=== PATIENT | male | born 1985 | race Caucasian/White ===

== ENCOUNTER 2016-11-21 05:49 | Inpatient (IN) | payer MEDICAID ==
[~2016-11-21] VITALS: Ht 152.4 cm; Wt 22.7 kg
[~2016-11-21 05:49] MED LIST: ALBUTEROL2.5 MG/3 M UPD; AUGMENTIN 875-11 TAB PO; DEPAKENE 2250 MG/5 M PEG; DEPAKENE 2250 MG/5 M PO; DOXYCYCLINE HY100 M2 PEG; OMNICEF250 MG/5 M PO; PHENOBARBI20 MG/5 ML PO; TEGRETOL200 MG PEG; TEGRETOL200 MG PO
[2016-11-21 07:10] LABS: BASOPHILS 2.7 % (0.0-2.0); EOSINOPHILS 0.6 % (0-7); HEMATOCRIT 41.9 % (42.0-54.0); HEMOGLOBIN 14.7 g/dL (13.5-17.5); MCH 31.1 pg (26.0-34.0); MCHC 35.1 g/dL (31.0-37.0); MCV 88.8 fL (80.0-100.0); MEAN PLATELET VOLUME 13.3 fL (7.4-10.4); MONOCYTES 14.9 % (2-11); NEUTROPHILS 62.8 % (40-80); RBC 4.72 10x6/uL (4.20-6.10); RDW 13.8 % (11.5-14.5)
[2016-11-21 07:11] LABS: PLATELET COUNT 170 10x3/uL (130-400)
[2016-11-21 08:35] LABS: ALBUMIN 3.7 g/dL (3.4-5.0); ALKALINE PHOSPHATASE 92 U/L (46-116); ALT (SGPT) 25 U/L (10-68); BILIRUBIN - TOTAL 0.32 mg/dL (0.2-1.3); CALC OSMOLALITY 255 mosm/kg (275-300); CALCIUM 8.8 mg/dL (8.5-10.1); CARBON DIOXIDE 24.5 mmol/L (21.0-32.0); CHLORIDE - SERUM 92 mmol/L (98-107); CREATININE - SERUM 0.3 mg/dL (0.6-1.3); GLUCOSE 109 mg/dL (74-106); PROTEIN - SERUM 7.2 g/dL (6.4-8.2); SODIUM 128 mmol/L (136-145); UREA NITROGEN 7 mg/dL (7-18); eGFR NON AFRICAN AMERICAN > 90 mL/min (90-120)
--- NOTE | 2016-11-21 10:00 | NUR ---
RECEIVED PATIENT VIA STRETCHER FROM THE ER. MOTHER WITH PATIENT. PATIENT IS NONVERBAL AND DISABLED. PATIENT'S MOTHER IS HIS PRIMARY QUILL CLEANER. PATIENT'S MOTHER STATES THAT PATIENT IS "VOCAL" AT TIMES, BUT IS NONVERBAL FOR HIS NEEDS AND COMMUNICATION. ORIENTED MOTHER TO CALL LIGHT AND PATIENT'S ROOM. PATIENT IS 50 LBS PER STATEMENT FROM HIS MOTHER. PATIENT'S BILATERAL UPPER AND LOWER EXTREMITIES ARE CONTRACTED. WILL MONITOR.
--- NOTE | 2016-11-21 15:44 | NUR ---
PATIENT RESTING QUIETLY WITH EYES CLOSED. NO S/S OF DISTRESS NOTED. SCHEDULED MEDICATIONS GIVEN NOW THAT WERE ORDERED TO BE GIVEN AT 1200. PATIENT'S MOTHER STATED THAT SHE DOES NOT GIVE HIM ANY MEDS AT NOON AND REQUESTED THEM BE GIVEN NOW. SAEED BUTTON IN PLACE AND FLUSHED WITHOUT ANY PROBLEMS NOTED. MEDICATIONS GIVEN WITHOUT ANY DIFFICULTIES. CALL LIGHT IN REACH. WILL MONITOR PATIENT
[2016-11-21 15:50] VITALS: BP 118/68
[2016-11-21 17:13] VITALS: BP 115/72
--- NOTE | 2016-11-21 19:15 | NUR ---
RECIEVED SHIFT REPORT. PT IS LYING IN BED. PT HAS EYES OPENED BUT IS NON VERBAL. IV IS PATENT AND FLUIDS ARE RUNNING PER ORDER. PT REQUIRES ASSISTANCE TURNING IN BED FOR COMFORT AND SKIN CARE. PT SHOWS NO SIGN OF PAIN AT THIS TIME. MOM IS AT THE BEDSIDE. NO NEEDS AT THIS TIME. WILL CONTINUE TO MONITOR. SIDE RAILS ARE UP X 2. BED IS IN LOWEST POSITION. CALL LIGHT IS WITHIN REACH.
[2016-11-21 20:32] VITALS: BP 72/39
--- NOTE | 2016-11-21 21:46 | NUR ---
SHIFT ASSESSMENT COMPLETED. NIGHT MEDS GIVEN PER ORDER THROUGH SAEED BUTTON WITH NO PROBLEM. SCHEDULED DOSE OF PHENOBARBITAL NOT GIVEN DUE TO DOSING ISSUES. WILL ADDRESS WITH PHARMACY IN AM. MOM STATES HE CANNOT GO WITHOUT IT DUE TO HIS HISTORY OF SEIZURES. SHE GAVE HIM DOSE FROM HOME MEDS. NO NEEDS AT THIS TIME. WILL MONITOR. SIDE RAILS X 2. BED LOW. CALL LIGHT IN REACH.
[2016-11-22 04:00] VITALS: BP 94/55
[2016-11-22 05:50] LABS: BASOPHILS 0 % (0.0-2.0); EOSINOPHILS 0 % (0-7); IMMATURE GRANULOCYTES 0.2 % (0-5); LYMPHOCYTES 6.9 % (15-50); MCH 30.6 pg (26.0-34.0); MCHC 34.7 g/dL (31.0-37.0); MCV 88.3 fL (80.0-100.0); MEAN PLATELET VOLUME 12.4 fL (7.4-10.4); MONOCYTES 8.6 % (2-11); NEUTROPHILS 84.3 % (40-80); PLATELET COUNT 157 10x3/uL (130-400); RDW 13.8 % (11.5-14.5)
[2016-11-22 05:59] LABS: HEMATOCRIT 32.3 % (42.0-54.0); HEMOGLOBIN 11.2 g/dL (13.5-17.5); RBC 3.66 10x6/uL (4.20-6.10)
[2016-11-22 06:16] LABS: CALC OSMOLALITY 253 mosm/kg (275-300); CALCIUM 8.2 mg/dL (8.5-10.1); CARBON DIOXIDE 23.4 mmol/L (21.0-32.0); CHLORIDE - SERUM 92 mmol/L (98-107); CREATININE - SERUM 0.3 mg/dL (0.6-1.3); GLUCOSE 112 mg/dL (74-106); POTASSIUM - SERUM 3.7 mmol/L (3.5-5.1); SODIUM 127 mmol/L (136-145); UREA NITROGEN 8 mg/dL (7-18); eGFR NON AFRICAN AMERICAN > 90 mL/min (90-120)
[2016-11-22 07:47] VITALS: BP 87/45
--- NOTE | 2016-11-22 09:00 | NUR ---
RESPONDS WITH EYE OPENING TO VERBAL STIMULATION. UNABLE TO ASSESS ORIENTATION PATIENT IS NON VERBAL. MOTHER IS AT BEDSIDE. LUNGS HAVE ADVANTAGOUS LUNG SOUNDS THROUGHOUT, OCCASSIONAL PRODUCTIVE COUGH NOTED. SKIN IS INTACT WITHOUT REDNESS EXCEPT SCAB TO LEFT ELBOW. GIVEN AM MEDS VIA ROMA BUTTON WITHOUT DIFFICULTY. HOB UP 30 DEGREES. IV TO LEFT HAND IS PATENT WITHOUT REDNESS AT INSERTION SITE. NO NEEDS NOTED.
--- NOTE | 2016-11-22 10:30 | NUR ---
GIVEN AM MEDS VIA SAEED BUTTON WITHOUT DIFFICULTY.
[2016-11-22 13:32] VITALS: BP 82/52
[2016-11-22 14:31] VITALS: Ht 152.4 cm; Wt 22.7 kg
[2016-11-22 16:09] VITALS: BP 96/51
--- NOTE | 2016-11-22 19:46 | NUR ---
NO CHANGES AT THIS TIME. MOTHER AT BEDSIDE.
[2016-11-22 20:00] VITALS: BP 94/64
--- NOTE | 2016-11-22 20:26 | NUR ---
PATIENT'S MOM IS AT BEDSIDE AND DENIES NEEDS AT THIS TIME. BED IN LOWEST POSITION AND CALL LIGHT WITHIN REACH. ENCOURAGED PATIENT'S MOTHER TO CALL IF SHE OR THE PATIENT HAVE NEEDS.
[2016-11-23 04:00] VITALS: BP 117/75
--- NOTE | 2016-11-23 08:00 | NUR ---
AROUSES TO VERBAL STIMULATION. INCONTINENT OF STOOL AND URINE AT THIS TIME. SKIN CARE PER STAFF. REPOSITIONED FOR COMFORT. LUNGS HAVE CRACKLES AND WHEEZES THROUGHOUT LUNG COLEMAN. PRODUCTIVE COUGH NOTED. FAMILY AT BEDSIDE USES YONKERS OCCASSIONALLY TO CLEAR MOUTH. SKIN IS INTACT WITHOUT REDNESS EXCEPT SCAB TO LEFT ELBOW, AND OPEN WOUND TO LEFT EAR WHICH IS CLEAN AND DRY AT THIS TIME. IV TO LEFT HAND IS PATENT WITHOUT REDNESS AT INSERTION SITE. SAEED BUTTON IS PATENT WITH SOME REDNESS AROUND INSERTION SITE. NO NEEDS NOTED.
[2016-11-23 08:33] VITALS: BP 120/69
--- NOTE | 2016-11-23 08:57 | NUR ---
Patient Name: AMILCAR GALLAGHER Admission Status: ER Accout number: [id number] Admission Date: 11-21-2016 : 1985 Admission Diagnosis:PNEUMONIA, UNSPECIFIED ORGANISM Attending: CHRISTIE Current LOS: 2 Anticipated DC Date: 11-26-2016 Planned Disposition: Home with Home Health Primary Insurance: MEDICAID [place] Discharge Planning Comments: CM MET WITH PATIENTS MOTHER (KEYANA) REGARDING D/C NEEDS AND PLANS. MOTHER STATED THERE IS ONE STEP AT HER HOME TO ENTER AND NO STAIRS INSIDE. PATIENT IS TOTALLY DEPENDENT FOR HIS CARE. MOTHER STATES PATIENT HAS [facility]. PATIENTS CAREGIVER (REGINE) IS THERE 5 DAYS A WEEK FOR 8 HRS. ALONG WITH HIS MOTHER BEING THERE BATTER DEPOSITOR. PATIENT HAS A NEBULIZER, BED, AND WHEELCHAIR AT HOME. PATIENTS PCP IS DR. SHAH AND PHARMACY IS [facility] ON [facility]. PATIENT WILL RETURN HOME AT DISCHARGE. CM WILL CONTINUE TO FOLLOW PATIENT WITH D/C NEEDS AND PLANS. PCP DR. PABLO SPIVEY ON [facility]- [phone] KEYANA ([facility] [place]) [phone] Garbage Pick Up Worker: Suzanne Floyd How many steps to enter\exit or inside your home? 1 0 * PCP DR. SHAH 0 * Pharmacy [facility] ON [address] 0 * Preadmission Environment Home with Family 0 * ADLs Total Dependent 0 * Equipment Nebulizer Wheelchair 0 * List name and contact numbers for known caregivers / representatives who currently or will assist patient after discharge: KEYANA GomezMOM) [phone] * Community resources currently utilized Home Health Other 0 * Please name any agencies selected above. [facility] 0 * Additional services required to return to the preadmission environment? Yes 0 * Can the patient safely return to the preadmission environment? Yes 0 * Has this patient been hospitalized within the prior 30 days at any hospital? No 0 Grand Total: 0
--- NOTE | 2016-11-23 09:30 | NUR ---
GIVEN CAN OF TWO ATUL VIA SAEED BUTTON. TOLERATED WITHOUT EMESIS. HOB UP 35 DEGREES
[2016-11-23 09:40] LABS: BASOPHILS 0 % (0.0-2.0); EOSINOPHILS 0 % (0-7); HEMATOCRIT 35.2 % (42.0-54.0); IMMATURE GRANULOCYTES 0.2 % (0-5); LYMPHOCYTES 6.7 % (15-50); MCH 30.6 pg (26.0-34.0); MCHC 34.1 g/dL (31.0-37.0); MCV 89.8 fL (80.0-100.0); MONOCYTES 8.6 % (2-11); NEUTROPHILS 84.5 % (40-80); PLATELET COUNT 140 10x3/uL (130-400); RBC 3.92 10x6/uL (4.20-6.10); RDW 14.1 % (11.5-14.5); WBC 11.1 10x3/uL (4.8-10.8)
[2016-11-23 09:57] LABS: ALBUMIN 3.2 g/dL (3.4-5.0); ALKALINE PHOSPHATASE 86 U/L (46-116); ALT (SGPT) 25 U/L (10-68); BILIRUBIN - TOTAL 0.45 mg/dL (0.2-1.3); CALCIUM 8.5 mg/dL (8.5-10.1); CARBON DIOXIDE 23.8 mmol/L (21.0-32.0); CHLORIDE - SERUM 97 mmol/L (98-107); GLUCOSE 113 mg/dL (74-106); MAGNESIUM - SERUM 1.9 mg/dL (1.8-2.4); PHOSPHOROUS 3.1 mg/dL (2.5-4.9); POTASSIUM - SERUM 3.3 mmol/L (3.5-5.1); PROTEIN - SERUM 6.6 g/dL (6.4-8.2); SODIUM 132 mmol/L (136-145)
[2016-11-23 09:58] LABS: CALC OSMOLALITY 262 mosm/kg (275-300); CREATININE - SERUM 0.2 mg/dL (0.6-1.3); UREA NITROGEN 5 mg/dL (7-18); eGFR NON AFRICAN AMERICAN > 90 mL/min (90-120)
--- NOTE | 2016-11-23 11:45 | NUR ---
INCONTINENT OF SMALL AMOUNT OF DARK STOOL AND URINE. SKIN CARE PER STAFF. LINENS CHANGED.
[2016-11-23 12:50] VITALS: BP 143/53
--- NOTE | 2016-11-23 16:15 | NUR ---
GIVEN ONE CAN TWO ATUL VIA SAEED BUTTON. TOLEARATED WITHOUT EMESIS.
[2016-11-23 17:33] VITALS: BP 103/60
--- NOTE | 2016-11-23 18:32 | NUR ---
LINENS CHANGED. REPOSITIONED FOR COMFORT. MOTHER AT BEDSIDE. NO CHANGES NOTED. DENIES NEEDS.
--- NOTE | 2016-11-23 19:37 | NUR ---
PATIENT'S MOM AT BEDSIDE AND DENIES NEEDS AT THIS TIME. PATIENT IN BED AND SHOWS NO VISIBLE SIGNS OF DISTRESS. BED IN LOWEST POSITION AND CALL LIGHT WITHIN REACH. ENCOURAGED PATIENT AND PATIENT'S MOM TO CALL IF HE HAS NEEDS.
[2016-11-23 22:58] VITALS: BP 105/57
[2016-11-24 02:04] VITALS: BP 101/65
[2016-11-24 05:36] LABS: BASOPHILS 0 % (0.0-2.0); EOSINOPHILS 0 % (0-7); HEMATOCRIT 36.3 % (42.0-54.0); HEMOGLOBIN 12.3 g/dL (13.5-17.5); IMMATURE GRANULOCYTES 0.1 % (0-5); LYMPHOCYTES 16.4 % (15-50); MCH 30.5 pg (26.0-34.0); MCHC 33.9 g/dL (31.0-37.0); MCV 90.1 fL (80.0-100.0); MEAN PLATELET VOLUME 11.7 fL (7.4-10.4); MONOCYTES 9.4 % (2-11); NEUTROPHILS 74.1 % (40-80); PLATELET COUNT 137 10x3/uL (130-400); RBC 4.03 10x6/uL (4.20-6.10); RDW 14.1 % (11.5-14.5)
[2016-11-24 06:15] VITALS: BP 125/68
[2016-11-24 06:31] LABS: ALBUMIN 2.9 g/dL (3.4-5.0); ALKALINE PHOSPHATASE 95 U/L (46-116); ALT (SGPT) 26 U/L (10-68); CALCIUM 8.7 mg/dL (8.5-10.1); CARBON DIOXIDE 26.7 mmol/L (21.0-32.0); CHLORIDE - SERUM 100 mmol/L (98-107); CREATININE - SERUM 0.2 mg/dL (0.6-1.3); GLUCOSE 87 mg/dL (74-106); MAGNESIUM - SERUM 2.2 mg/dL (1.8-2.4); PHOSPHOROUS 2.4 mg/dL (2.5-4.9); POTASSIUM - SERUM 3.6 mmol/L (3.5-5.1); PROTEIN - SERUM 6.3 g/dL (6.4-8.2); SODIUM 137 mmol/L (136-145); eGFR NON AFRICAN AMERICAN > 90 mL/min (90-120)
[2016-11-24 06:32] LABS: CALC OSMOLALITY 270 mosm/kg (275-300); UREA NITROGEN 8 mg/dL (7-18)
--- NOTE | 2016-11-24 07:36 | NUR ---
RESTING QUIETLY WITH EYES CLOSED. MOTHER AT BEDSIDE. LUNGS HAVE CRACKLES THROUGHOUT LUNG COLEMAN. OCCASSIONAL PRODUCTIVE COUGH NOTED. SKIN IS INTACT WITHOUT REDNESS EXCEPT SCAB TO LEFT ELBOW AND WOUND TO RIGHT EAR WHICH IS OLD. IV TO LEFT HAND PATENT WITHOUT REDNESS AT INSERTION SITE. NO NEEDS NOTED.
[2016-11-24 08:46] VITALS: BP 122/95
--- NOTE | 2016-11-24 10:56 | NUR ---
GIVEN AM MEDS PER NURSING STUDENTS USING SAEED BUTTON. TOLERATED FEEDING WITHOUT SIGNS OF NAUSEA.
[2016-11-24 11:00] LABS: APPEARANCE CLEAR (CLEAR); BACTERIA FEW /hpf (NONE SEEN); BILIRUBIN NEGATIVE (NEGATIVE); COLOR DK YELLOW (YELLOW); EPITHELIAL CELLS 0-5 /hpf (0-5); GLUCOSE NEGATIVE (NEGATIVE); KETONE NEGATIVE (NEGATIVE); LEUKOCYTE ESTERASE TRACE (NEGATIVE); MUCUS <1+ /lpf (NONE SEEN); NITRITE NEGATIVE (NEGATIVE); PROTEIN NEGATIVE (NEGATIVE); RED CELLS - URINE OCC /hpf (0-5); SPECIFIC GRAVITY 1.005 (1.005-1.020); UROBILINOGEN NORMAL (NORMAL); WHITE CELLS - URINE OCC /hpf (0-5)
[2016-11-24 12:45] VITALS: BP 104/65
--- NOTE | 2016-11-24 13:14 | NUR ---
NUTRITION MONITORING & EVAL SPOKE WITH NURSING. PT TOLERATING TWO ATUL HN. [address] FOLLOWING
--- NOTE | 2016-11-24 15:00 | NUR ---
GIVEN ONE CAN TWO ATUL VIA SAEED PEG. TOLERATED WITHOUT COMPLICATIONS.
--- NOTE | 2016-11-24 16:20 | NUR ---
HAD SOME CHOKING AND SUCTIONED PER STAFF, RESOLVED QUICKLY WITHOUT ILL EFFECTS NOTED.
[2016-11-24 16:43] VITALS: BP 114/74
--- NOTE | 2016-11-24 18:28 | NUR ---
NO CHANGES NOTED AT THIS TIME. MOTHER AT [facility].
[2016-11-24 20:00] VITALS: BP 118/62
--- NOTE | 2016-11-24 22:05 | NUR ---
PATIENT RESTING IN BED WITH MOTHER AT BEDSIDE. ADMINISTERED MEDICATION AND FEEDING. NO VISIBLE SIGNS OF DISTRESS. BED IN LOWEST POSITION AND CALL LIGHT WITHIN REACH. ENCOURAGED MOM TO CALL IF THE PATIENT HAS FURTHER NEEDS.
--- NOTE | 2016-11-24 23:30 | NUR ---
NOY BALDWIN AFTER WILVER INFORMED ME THAT THE PATIENT HAS 100.8 TEMP. DENNY ORDERED TYLENOL FOR THE PATIENT'S FEVER.
[2016-11-25] VITALS: BP 94/62
[2016-11-25 04:00] VITALS: BP 102/77
[2016-11-25 05:41] LABS: BASOPHILS 0.2 % (0.0-2.0); EOSINOPHILS 0 % (0-7); HEMATOCRIT 30.1 % (42.0-54.0); IMMATURE GRANULOCYTES 0.2 % (0-5); LYMPHOCYTES 25.3 % (15-50); MCH 30.2 pg (26.0-34.0); MCHC 33.2 g/dL (31.0-37.0); MCV 90.9 fL (80.0-100.0); MEAN PLATELET VOLUME 11.8 fL (7.4-10.4); MONOCYTES 13.1 % (2-11); NEUTROPHILS 61.2 % (40-80); PLATELET COUNT 142 10x3/uL (130-400); RBC 3.31 10x6/uL (4.20-6.10); RDW 14.4 % (11.5-14.5)
[2016-11-25 05:45] LABS: WBC 5.4 10x3/uL (4.8-10.8)
[2016-11-25 06:13] LABS: ALBUMIN 2.4 g/dL (3.4-5.0); ALKALINE PHOSPHATASE 71 U/L (46-116); ALT (SGPT) 18 U/L (10-68); BILIRUBIN - TOTAL 0.27 mg/dL (0.2-1.3); CALC OSMOLALITY 274 mosm/kg (275-300); CALCIUM 8.4 mg/dL (8.5-10.1); CARBON DIOXIDE 28.4 mmol/L (21.0-32.0); CHLORIDE - SERUM 103 mmol/L (98-107); CREATININE - SERUM 0.2 mg/dL (0.6-1.3); GLUCOSE 76 mg/dL (74-106); POTASSIUM - SERUM 3.8 mmol/L (3.5-5.1); PROTEIN - SERUM 5.9 g/dL (6.4-8.2); SODIUM 138 mmol/L (136-145); UREA NITROGEN 13 mg/dL (7-18); eGFR NON AFRICAN AMERICAN > 90 mL/min (90-120)
--- NOTE | 2016-11-25 07:00 | NUR ---
REPORT RECIEVED ASSUMED CARE. PATIENT IN BED WITH IV INTACT. LAYING ON SIDE WITH HEELS FLOATING. CALL LIGHT WITHIN REACH.
[2016-11-25 08:41] VITALS: BP 102/58
--- NOTE | 2016-11-25 09:00 | NUR ---
PATIENT RECIEVED TF THROUGH ROMA BUTTON AND MEDS WELL. NO SIGNS OF DISTRESS AT THIS TIME. FAMILY AT BEDSIDE. CALL LIGHT WITHIN REACH. REPOSITIONED BY MOTHER.
--- NOTE | 2016-11-25 11:04 | NUR ---
CM REASSESSMENT NOTE: HOME SUCTION HAS BEEN ORDERED THROUGH [facility] CM TO CALL WHEN PATIENT DISCHARGES.
--- NOTE | 2016-11-25 13:00 | NUR ---
PATIENT IN BED RESTING QUIETLY. REPOSTIONED AT THIS TIME. NO COMPLAINTS. CALL LIGHT WITHIN REACH.
[2016-11-25 13:03] VITALS: BP 94/54
--- NOTE | 2016-11-25 15:00 | NUR ---
PATIENT RECIEVED TF AND MEDS AT THIS TIME THROUGH ROMA BUTTON. NO COMPLAINTS OR SIGNS OF DISTRESS. PATIENT REPOSTIONED. FAMILY AT BEDSIDE. ATUL LIGHT WITHIN REACH.
[2016-11-25 16:32] VITALS: BP 110/76
--- NOTE | 2016-11-25 18:55 | NUR ---
PATIENT IN BED WITH IV INTACT. RT IN ROOM WITH PATIENT. PATIENT HAS NO COMPLAINTS OR SIGNS OF DISTRESS. CALL LIGHT WITHIN REACH.
[2016-11-25 21:33] VITALS: BP 97/72
[2016-11-26 01:00] VITALS: BP 119/79
--- NOTE | 2016-11-26 03:48 | NUR ---
2000)MOTHER STATES LEAVING FOR THE NITE. NITE TIME MEDS GIVEN THRU SAEED BUTTON.HOB ELEVATED 35 DEGREES.CAN TWO ATUL GIVEN,FLUSHED WITH 75CC H2O SULAIMAN. WELL WILL CONTINUE TO MONITOR FOR ANY CHGES. AND FOLLOW CURRENT PLAN OF CARE.
[2016-11-26 06:48] VITALS: BP 66/47
--- NOTE | 2016-11-26 07:00 | NUR ---
REPORT RECIEVED ASSUMED CARE. PATIENT IN BED WITH IV INTACT. NO COMPLAINTS OR SIGNS OF DISTRESS. CALL LIGHT WITHIN REACH.
[2016-11-26 07:54] VITALS: BP 118/86
[2016-11-26 08:12] LABS: BASOPHILS 0.3 % (0.0-2.0); EOSINOPHILS 0.3 % (0-7); HEMOGLOBIN 11.3 g/dL (13.5-17.5); IMMATURE GRANULOCYTES 0.7 % (0-5); LYMPHOCYTES 20.1 % (15-50); MCH 30.5 pg (26.0-34.0); MCHC 33.2 g/dL (31.0-37.0); MCV 91.6 fL (80.0-100.0); MEAN PLATELET VOLUME 11.2 fL (7.4-10.4); MONOCYTES 14.4 % (2-11); NEUTROPHILS 64.2 % (40-80); PLATELET COUNT 159 10x3/uL (130-400); RBC 3.71 10x6/uL (4.20-6.10); RDW 14.2 % (11.5-14.5)
[2016-11-26 08:14] LABS: WBC 7.5 10x3/uL (4.8-10.8)
[2016-11-26 08:32] LABS: ALBUMIN 2.8 g/dL (3.4-5.0); ALKALINE PHOSPHATASE 81 U/L (46-116); ALT (SGPT) 22 U/L (10-68); BILIRUBIN - TOTAL 0.23 mg/dL (0.2-1.3); CALCIUM 8.9 mg/dL (8.5-10.1); CARBON DIOXIDE 25.9 mmol/L (21.0-32.0); CHLORIDE - SERUM 99 mmol/L (98-107); GLUCOSE 93 mg/dL (74-106); PROTEIN - SERUM 6.8 g/dL (6.4-8.2); SODIUM 132 mmol/L (136-145)
[2016-11-26 08:33] LABS: CALC OSMOLALITY 262 mosm/kg (275-300); CREATININE - SERUM 0.3 mg/dL (0.6-1.3); POTASSIUM - SERUM 4.5 mmol/L (3.5-5.1); UREA NITROGEN 6 mg/dL (7-18); eGFR NON AFRICAN AMERICAN > 90 mL/min (90-120)
--- NOTE | 2016-11-26 09:20 | NUR ---
PATIENT PLACED ON DROPLET ISOLATION. EXPLAINED TO PATIENTS MOTHER THAT HE HAS STAPH IN HIS SPUTUM AND TESTED FOR MRSA. EXPLAINED MRSA TO PATIENT MOTHER. MOTHER STATED THAT SHE KNOWS THE PATIENT HAS IT BECAUSE HE WAS PUT IN THAT ROOM AND IT WAS DIRTY WHEN HE GOT HERE. STATED HE DIDNT HAVE IT UNTIL NOW AND THAT SHE WAS GOING TO GET AN WORKFORCE MANAGEMENT MANAGER. VERBALIZED UNDERSTANDING. CALL LIGHT WITHIN REACH.
--- NOTE | 2016-11-26 10:35 | NUR ---
Nutrition Follow Up: Chart reviewed. Pt is tolerating current TF regimen of TwoCal HN 3 cans/d. Wt stable. +BM 11/25/16. Meds noted including LR @ 30 ml/hr. Labs noted. Rec continue current TF regimen which is providing 1425 kcal (62 kcal/kg body wt), 60 g protein (2.7 g/kg body wt), 498 ml free water. Rec 100 ml H20 flush before and after each bolus is given. Rec 100 ml H20 flush TID. Rec d/c IV fluids. RD will continue to monitor pt progress.
[2016-11-26 11:33] VITALS: BP 102/66
[2016-11-26 16:32] VITALS: BP 119/76
--- NOTE | 2016-11-26 17:20 | NUR ---
SPOKE WITH DENNY HOLM ABOUT PATIENTS SEIZURE ACTIVITY THAT MOTHER STATED PATIENT HAD. STATED HE HAD TWO SEIZURES. WENT INTO PATIENTS ROOM WHEN SHE STATED HE WAS HAVING 2ND SEIZURE. PATIENT DID NOT SEEM HE WAS HAVING SEIZURE BUT I HAVE NOT WITNESSED PATIENT ACTIVITY WHILE SEIZING. WILL CONTINUE TO MONITOR. DENNY DID NOT GIVE ANY NEW ORDERS AT THIS TIME BUT TO FIND OUT WHO NEUROLOGIST IS. TRIED TO SPEAK WITH MOTHER ABOUT IT BUT MOTHER SLEEPING AND UNABLE TO TALK AT THIS TIME. PATIENT IN BED WITH IV INTACT. NO COMPLAINTS OR SIGNS OF DISTRESS. CALL LIGHT WITHIN REACH.
--- NOTE | 2016-11-26 18:45 | NUR ---
MOTHER AT PATIENTS BEDSIDE. WENT IN TO SPEAK WITH HER ABOUT PATIENT SEIZURES AND TO FIND OUT WHO PATIENTS NEUROLOGIST IS. SPOKE WITH DENNY HOLM ABOUT PATIENTS SEIZURES THAT MOM STATED PATIENT HAD. NO SEIZURE ACTIVITY WAS WITNESSED BY ME AT THIS TIME. EXPLAINED TO DENNY. PATIENT MOTHER ASLEEP. UNABLE TO WAKE HER AT THIS TIME. PATIENT IS RESTING WITH NO SIGNS OF DISTRESS. WILL CONTINUE TO MONITOR. IV INTACT. CALL LIGHT WITHIN REACH.
--- NOTE | 2016-11-26 20:00 | NUR ---
PT RECEIVED RESTING IN BED QUIETLY. MOTHER SLEEPING AT BEDSIDE, UNABLE TO WAKE. SCAB TO LEFT ELBOW NOTED AND RIGHT EAR. PT IS NONVERBAL WITH COMMUNICATION BUT DOES AROUSE TO VERBAL STIMULI. IV TO LEFT HAND PATENT. CALL LIGHT IN REACH. BED IN LOW POSITION. SIDE RAILS UP X2.
--- NOTE | 2016-11-26 22:00 | NUR ---
PT RECEIVED MED AND 1 CAN OF 2CAL PER SAEED, TOLERATED WELL. NO EMESIS NOTED. PT'S MOTHER REMAINS SLEEPING AT BEDSIDE, OPENED EYES TO LOOK AT THIS NURSE, THEN WENT BACK TO SLEEP. PT'S MOTHER DID NOT SPEAK TO THIS NURSE. NO S/S OF DISTRESS NOTED FROM PT AT THIS TIME. BED IN LOW POSITION. SIDE RAILS UP X2.
--- NOTE | 2016-11-27 02:00 | NUR ---
PT IN BED WITH NO DISTRESS. RESPIRATIONS EVEN AND UNLABORED. MOM AT BEDSIDE. SIDE RAILS X 2. BED LOW. CALL LIGHT IN REACH.
--- NOTE | 2016-11-27 07:40 | NUR ---
SLEEPING AT THIS TIME. MOTHER SLEEPING ON FLOOR AT BEDSIDE. RESPIRATIONS EVEN AND NON LABORED. CALL LIGHT IN REACH, WILL CONTINUE WITH PLAN OF CARE.
[2016-11-27 08:40] VITALS: BP 111/68
[2016-11-27 12:34] VITALS: BP 118/83
[2016-11-27 12:42] LABS: BASOPHILS 0.1 % (0.0-2.0); EOSINOPHILS 0.7 % (0-7); HEMATOCRIT 35.7 % (42.0-54.0); IMMATURE GRANULOCYTES 1.3 % (0-5); MCH 30.8 pg (26.0-34.0); MCHC 33.6 g/dL (31.0-37.0); MCV 91.8 fL (80.0-100.0); MEAN PLATELET VOLUME 10.8 fL (7.4-10.4); NEUTROPHILS 57.9 % (40-80); PLATELET COUNT 194 10x3/uL (130-400); RBC 3.89 10x6/uL (4.20-6.10); RDW 14.2 % (11.5-14.5); WBC 7.6 10x3/uL (4.8-10.8)
[2016-11-27 12:55] LABS: ALBUMIN 2.9 g/dL (3.4-5.0); ALKALINE PHOSPHATASE 99 U/L (46-116); ALT (SGPT) 22 U/L (10-68); BILIRUBIN - TOTAL 0.24 mg/dL (0.2-1.3); CALC OSMOLALITY 255 mosm/kg (275-300); CARBON DIOXIDE 25.2 mmol/L (21.0-32.0); CHLORIDE - SERUM 96 mmol/L (98-107); CREATININE - SERUM 0.3 mg/dL (0.6-1.3); GLUCOSE 101 mg/dL (74-106); POTASSIUM - SERUM 4.5 mmol/L (3.5-5.1); PROTEIN - SERUM 7.4 g/dL (6.4-8.2); SODIUM 128 mmol/L (136-145); UREA NITROGEN 9 mg/dL (7-18); VANCOMYCIN - TROUGH 2.7 ug/mL (10.0-20.0); eGFR NON AFRICAN AMERICAN > 90 mL/min (90-120)
--- NOTE | 2016-11-27 14:20 | NUR ---
MOTHER REPORTS THAT PT HAD SEIZURE LIKE ACTIVITY AT 3 MINUTES PRIOR. PT DOES NOT APPEAR TO BE SEIZING AND RESPIRATIONS ARE EVEN AND NON LABORED. SEIZURE WAS NOT WITNESSED BY HOSPITAL STAFF. BP 106/66 AND HEART RATE [address]. SPOKE WITH DR ARAIZA AND SHE ORDERED LEVELS OF SEIZURE MEDICATIONS AND ATIVAN NEEDED FOR SEIZURES. LET MOTHER KNOW ABOUT NEW ORDERS AND SHE VERBALIZED UNDERSTANDING.
[2016-11-27 14:41] LABS: PHENOBARBITAL 17.1 ug/mL (15.0-40.0); VALPROIC ACID (DEPAKOTE) 97.9 ug/mL (50.0-100.0)
--- NOTE | 2016-11-27 15:30 | NUR ---
SCHEDULED MEDICATIONS ADMINISTERED THROUGH ROMA BUTTON AT THIS TIME AND TUBE FEEDING PROVIDED ORDERED. RE-POSITIONED ON LEFT SIDE WITH LEFT ELBOW PADDED AND RIGHT EAR OPEN TO AIR. MOTHER STEPPED OUTSIDE AT THIS TIME. NO S/S OF DISTRESS. TUBE FEEDING TOLERATED WITHOUT ISSUE. CALL LIGHT IN REACH AND DOOR OPEN. REMAINS IN DROPLET ISOLATION. WILL CONTINUE WITH PLAN OF CARE.
[2016-11-27 16:34] VITALS: BP 106/66
--- NOTE | 2016-11-27 17:20 | NUR ---
PT HAVING SEIZURE ACTIVITY AT THIS TIME. MOM ORAL SUCTIONING PATIENT. RIDGID AND THRASHING. PRN ATIVAN 1MG ADMINISTERED AT THIS TIME. SEIZURE ACTIVITY LASTED 2 MINUTES. BP 105/70 AND PULSE 101. WILL CONTINUE WITH PLAN OF CARE.
--- NOTE | 2016-11-27 19:38 | NUR ---
PATIENT RESTING WITH EYES CLOSED. NO VISIBLE SIGNS OF DISTRESS. BED IN LOWEST POSITION AND CALL LIGHT WITHIN REACH.
[2016-11-27 21:36] VITALS: BP 101/67
--- NOTE | 2016-11-28 07:30 | NUR ---
SLEEPING AT THIS TIME WITH MOTHER AT BEDSIDE. RESPIRATIONS EVEN AND NON LABORED. REMAINS IN DROPLET ISOLATION FOR MRSA IN THE SPUTUM. SRX2 WITH BED IN LOWEST POSITION AND WHEELS LOCKED. BED ALARM ON. HERMILO ALARCON IN ROOM GETTING PT'S VITAL SIGNS. CALL LIGHT IN MOM'S REACH. WILL CONTINUE WITH PLAN OF CARE.
[2016-11-28 07:53] VITALS: BP 102/67
--- NOTE | 2016-11-28 09:08 | NUR ---
SCHEDULED MEDICATIONS ADMINISTERED AT THIS TIME WITHOUT DIFFICULTY. RESIDUAL CHECKED PRIOR TO ADMINISTRATION AND THERE WAS NONE. FEEDING ADMINISTERED AT THIS TIEM AND FOLLOWED WITH A 100ML TAP WATER FLUSH. SKIN CARE PROVIDED AROUND SAEED BUTTON. PT TURNED TO LEFT SIDE AND INCONTINENCE CARE PROVIDED. ASSESSMENT PERFORMED PER FLOWSHEET. MOTHER AT BEDSIDE. WILL CONTINUE WITH PLAN OF CARE.
[2016-11-28 12:36] VITALS: BP 103/64
--- NOTE | 2016-11-28 15:00 | NUR ---
SAEED BUTTON CHECKED FOR RESIDUAL, BUT THERE WAS NONE. TUBE FEEDING ADMINISTERED PER ORDER WITH 100 ML TAP WATER FLUSH. MOM REMAINS IN BEDSIDE ASLEEP. DENIES NEEDS AT THIS TIME. CALL LIGHT IN REACH, WILL CONTINUE WITH PLAN OF CARE.
[2016-11-28 15:34] VITALS: BP 117/80
--- NOTE | 2016-11-28 19:56 | NUR ---
PATIENT RESTING IN BED. NO VISIBLE SIGNS OF DISTRESS. BED IN LOWEST POSITION AND CALL LIGHT WITHIN REACH.
[2016-11-28 22:19] VITALS: BP 111/72
[2016-11-29 03:29] VITALS: BP 100/73
[2016-11-29 05:40] LABS: BASOPHILS 0.1 % (0.0-2.0); EOSINOPHILS 0.4 % (0-7); HEMATOCRIT 34.5 % (42.0-54.0); IMMATURE GRANULOCYTES 1.2 % (0-5); LYMPHOCYTES 17.6 % (15-50); MCH 31.2 pg (26.0-34.0); MCHC 34.8 g/dL (31.0-37.0); MEAN PLATELET VOLUME 10.5 fL (7.4-10.4); MONOCYTES 20.4 % (2-11); NEUTROPHILS 60.3 % (40-80); RBC 3.85 10x6/uL (4.20-6.10); RDW 14.2 % (11.5-14.5); WBC 8.5 10x3/uL (4.8-10.8)
[2016-11-29 05:47] LABS: MCV 89.6 fL (80.0-100.0); PLATELET COUNT 267 10x3/uL (130-400)
[2016-11-29 06:17] LABS: ALBUMIN 2.9 g/dL (3.4-5.0); ALKALINE PHOSPHATASE 101 U/L (46-116); ALT (SGPT) 27 U/L (10-68); CALC OSMOLALITY 261 mosm/kg (275-300); CALCIUM 8.4 mg/dL (8.5-10.1); CHLORIDE - SERUM 97 mmol/L (98-107); GLUCOSE 108 mg/dL (74-106); POTASSIUM - SERUM 4.8 mmol/L (3.5-5.1); PROTEIN - SERUM 6.4 g/dL (6.4-8.2); SODIUM 131 mmol/L (136-145); UREA NITROGEN 7 mg/dL (7-18)
[2016-11-29 06:24] LABS: CREATININE - SERUM 0.2 mg/dL (0.6-1.3)
[2016-11-29 06:25] LABS: eGFR NON AFRICAN AMERICAN > 90 mL/min (90-120)
--- NOTE | 2016-11-29 07:00 | NUR ---
REPORT RECIEVED ASSUMED CARE. PATIENT IN BED WITH IV INTACT. MOTHER SLEEPING AT THE BEDSIDE.
--- NOTE | 2016-11-29 07:45 | NUR ---
ASSISTED HAND ASSEMBLER IN CHANGING AND REPOSITIONING PATIENT AT THIS TIME. PATIENT HAS NO COMPLAINTS OR SIGNS OF DISTRESS. MOTHER SLEEPING AT THE BS AT THIS TIME.
[2016-11-29 07:52] VITALS: BP 114/80
--- NOTE | 2016-11-29 10:20 | NUR ---
PATIENT RECIEVED SCHEDULED MEDS AND TF AT THIS TIME. NO SIGNS OF DISTRESS. IV INTACT. CHANGED AND REPOSITIONED BY CNAS AFTERWARDS. MOTHER SLEEPING AT BS.
[2016-11-29 11:23] VITALS: BP 120/78
--- NOTE | 2016-11-29 11:50 | NUR ---
PATIENT CHANGED AND REPOSITIONED AT THIS TIME. IV AND RMOA BUTTON INTACT. CALL LIGHT WITHIN REACH. MOTHER SLEEPING AT THE BEDSIDE.
--- NOTE | 2016-11-29 14:00 | NUR ---
PATIENT CHANGED AND REPOSITIONED AT THIS TIME BY CNAS. MOTHER SLEEPING AT BEDSIDE.
--- NOTE | 2016-11-29 15:22 | NUR ---
PATIENT RECIEVED MEDS AND TF AGAIN AT THIS TIME. NO SIGNS OF DISTRESS. IV INTACT. MOTHER SLEEPING AT BEDSIDE.
[2016-11-29 16:17] VITALS: BP 114/62
--- NOTE | 2016-11-29 17:15 | NUR ---
PATIENTS MOTHER STATED PATIENT IS HAVING A SEIZURE. WENT IN ROOM, PATIENT LAYING IN BED WITH NO SIGNS OF SEIZURE ACTIVITY AT THIS TIME. ASKED MOTHER WHAT KIND OF MOVEMENTS DOES PATIENT HAVE WHEN HE HAS SEIZURES. STATED THAT HE JERKS AND MOVES AROUND. THEN SHE WENT INTO THE BR. PATIENT HAS NO SIGNS OF DISTRESS OR SEIZURE TO ME AT THIS TIME. IV INTACT. WILL CONTINUE TO MONITOR. CALL LIGHT WITHIN REACH. EXPLAINED TO MOTHER THAT IF HE CONTINUES THE SEIZURES HE DOES HAVE ATIVAN ORDERED IF NEEDED. VERBALIZED UNDERSTANDING.
--- NOTE | 2016-11-29 18:28 | NUR ---
PATIENT IN BED WITH EYES CLOSED RESTING QUIETLY. NO COMPLAINTS OR SIGNS OF DISTRESS. IV INTACT. MOTHER SLEEPING AT BEDSIDE.
[2016-11-29 19:00] VITALS: BP 122/77
--- NOTE | 2016-11-29 21:52 | NUR ---
PATIENT RESTING IN BED WITH EYES OPEN. NO SIGNS OF DISTRESS NOTED. SCHEDULED MEDS GIVEN. SHIFT ASSESSMENT COMPLETED. MOTHER NOT PRESENT AT THIS TIME. PATIENT TURNED. BED LOW.
[2016-11-30] VITALS: BP 101/67
[2016-11-30 04:00] VITALS: BP 104/64
--- NOTE | 2016-11-30 04:00 | NUR ---
PATIENT SLEEPING WITH NO DISTRESS NOTED. AGREE WITH DISTRIBUTION SPEC ASSESSMENT.
[2016-11-30 05:52] LABS: HEMATOCRIT 34.3 % (42.0-54.0); HEMOGLOBIN 11.3 g/dL (13.5-17.5); MCH 30.3 pg (26.0-34.0); MCHC 32.9 g/dL (31.0-37.0); MEAN PLATELET VOLUME 9.9 fL (7.4-10.4); PLATELET COUNT 289 10x3/uL (130-400); RBC 3.73 10x6/uL (4.20-6.10); RDW 14.6 % (11.5-14.5); WBC 6.4 10x3/uL (4.8-10.8)
[2016-11-30 06:30] LABS: ALKALINE PHOSPHATASE 114 U/L (46-116); ALT (SGPT) 28 U/L (10-68); BILIRUBIN - TOTAL 0.27 mg/dL (0.2-1.3); CALC OSMOLALITY 269 mosm/kg (275-300); CALCIUM 8.6 mg/dL (8.5-10.1); CARBON DIOXIDE 24.6 mmol/L (21.0-32.0); CHLORIDE - SERUM 100 mmol/L (98-107); CREATININE - SERUM 0.2 mg/dL (0.6-1.3); GLUCOSE 93 mg/dL (74-106); POTASSIUM - SERUM 4.9 mmol/L (3.5-5.1); PROTEIN - SERUM 6.6 g/dL (6.4-8.2); SODIUM 135 mmol/L (136-145); eGFR NON AFRICAN AMERICAN > 90 mL/min (90-120)
[2016-11-30 06:31] LABS: UREA NITROGEN 12 mg/dL (7-18)
--- NOTE | 2016-11-30 07:00 | NUR ---
REPORT RECIEVED ASSUMED CARE. PATIENT IN BED WITH IV INTACT. NO SIGNS OF DISTRESS, CALL LIGHT WITHIN REACH. BA ON. MOTHER SLEEPING AT BEDSIDE.
[2016-11-30 07:03] LABS: EOSINOPHILS 4 % (0-7); LYMPHOCYTES 28 % (15-50); MONOCYTES 21 % (2-11); NEUTROPHILS 41 % (40-80); PLATELET ESTIMATE NORMAL; ROULEAUX 1+
[2016-11-30 08:05] VITALS: BP 92/59
--- NOTE | 2016-11-30 12:35 | NUR ---
PATIENTS MOTHER STATED THAT PATIENT HAVING A SEIZURE. WENT TO ROOM PATIENT IN BED NO SEIZURE ACTIVITY AT THIS TIME. MOTHER STATED THIS WAS THE SECOND ONE THAT HE HAD AND THAT WE NEED TO DO BETTER GETTING HIS MEDS ON TIME AND THAT HE HAS NEVER HAD GOOD SEIZURE CONTROL ANYWAYS. MEDS WERE GIVEN 50 MINUTES LATE AND EXPLAINED TO MOTHER THAT THAT SHOULD NOT MAKE A DIFFERENCE AND THAT WE HAVE LOTS OF MEDS DUE AT 0900 SO IT WONT ALWAYS BE EXACTLY AT 0900 THAT PATIENT GETS MEDS. VERBALIZED UNDERSTANDING. ATIVAN 1 MG GIVEN IVP SLOWLY OVER ONE MINUTE AT THIS TIME. PATIENT RESTING QUIETLY WITH MOTHER AT BEDSIDE. NOTIFIED NURSE GLASSWORKER AND BIODIESEL DIVISION MANAGER OF MOTHERS CONCERNS.
--- NOTE | 2016-11-30 12:56 | NUR ---
NUTRITION MONITORING & EVAL NURSING REPORTS PT TOLERATING BOLUS TUBE FEEDS. NS @ 50 CC/HR. RD FOLLOWING
[2016-11-30 16:01] VITALS: BP 110/62
--- NOTE | 2016-11-30 18:45 | NUR ---
PATIENT IN BED WITH IV INTACT. NO SIGNS OF DISTRESS. MOTHER DID NOT REPORT ANYMORE SEIZURE ACTIVITY THROUGH OUT THE DAY. BA ON.
[2016-11-30 20:00] VITALS: BP 116/72
--- NOTE | 2016-11-30 22:00 | NUR ---
PATIENT RESTING IN BED. NO SIGNS OF DISTRESS NOTED. SCHEDULED MEDS GIVEN. SHIFT ASSESSMENT COMPLETED. MOTHER AT BEDSIDE. NO NEEDS VOICED AT THIS TIME. BED LOW.
[2016-12-01] VITALS: BP 135/67
--- NOTE | 2016-12-01 01:45 | NUR ---
PATIENT MOTHER STATED PATIENT HAD A "BIG" SEIZURE. NO SEIZURE LIKE ACTIVITY NOTED UPON ASSESSMENT. PATIENT NOTED SLIGHTY MORE AGGITATED AND JUMPY WHEN TOUCHED. MOTHER STATES IT WAS BECAUSE OF THE SEIZURE AND REQUESTED PATIENT RECEIVED PRN ATIVAN. ATIVAN GIVEN. NO OTHER NEEDS VOICED. BED LOW.
[2016-12-01 04:00] VITALS: BP 100/65
--- NOTE | 2016-12-01 04:00 | NUR ---
PATIENT SLEEPING WITH NO DISTRESS NOTED. AGREE WITH PROFESSOR OF BUSINESS ADMINISTRATION ASSESSMENT.
[2016-12-01 06:08] LABS: BASOPHILS 0.2 % (0.0-2.0); EOSINOPHILS 0.2 % (0-7); HEMATOCRIT 30.5 % (42.0-54.0); HEMOGLOBIN 10.3 g/dL (13.5-17.5); IMMATURE GRANULOCYTES 1.1 % (0-5); LYMPHOCYTES 14.7 % (15-50); MCH 30.9 pg (26.0-34.0); MCHC 33.8 g/dL (31.0-37.0); MCV 91.6 fL (80.0-100.0); MEAN PLATELET VOLUME 9.7 fL (7.4-10.4); MONOCYTES 13.1 % (2-11); NEUTROPHILS 70.7 % (40-80); RBC 3.33 10x6/uL (4.20-6.10); RDW 14.8 % (11.5-14.5)
[2016-12-01 06:11] LABS: PLATELET COUNT 359 10x3/uL (130-400); WBC 10.4 10x3/uL (4.8-10.8)
[2016-12-01 06:28] LABS: ALBUMIN 2.8 g/dL (3.4-5.0); ALKALINE PHOSPHATASE 101 U/L (46-116); ALT (SGPT) 27 U/L (10-68); CALC OSMOLALITY 259 mosm/kg (275-300); CALCIUM 8.7 mg/dL (8.5-10.1); CARBON DIOXIDE 26.8 mmol/L (21.0-32.0); CHLORIDE - SERUM 98 mmol/L (98-107); CREATININE - SERUM 0.2 mg/dL (0.6-1.3); GLUCOSE 105 mg/dL (74-106); POTASSIUM - SERUM 4.5 mmol/L (3.5-5.1); PROTEIN - SERUM 6.6 g/dL (6.4-8.2); SODIUM 130 mmol/L (136-145); UREA NITROGEN 11 mg/dL (7-18); eGFR NON AFRICAN AMERICAN > 90 mL/min (90-120)
--- NOTE | 2016-12-01 07:45 | NUR ---
INCONTINENT CARE PROVIDED AT THIS TIME. PT POSITIONED ON LEFT SIDE. IV TO RIGHT FOREARM PATENT WITH NO S/S OF INFILTRATION PRESENT. SRX3 WITH BED IN LOWEST POSITION AND WHEELS LOCKED. MOTHER SLEEPING AT BEDSIDE. CALL LIGHT IN REACH AND DOOR OPEN. REMAINS IN DROPLET ISOLATION. WILL CONTINUE WITH PLAN OF CARE.
[2016-12-01 08:29] VITALS: BP 109/73
--- NOTE | 2016-12-01 10:10 | NUR ---
SCHEDULED MEDICATIONS ADMINSITERED AT THIS TIME. MOTHER REMAINS AT BEDSIDE ASLEEP. SAEED BUTTON CHECKED FOR RESIDUAL AND THERE WAS NONE. BOLUS FEEDING ADMINISTERED ORDERED. MEDICATIONS GIVEN CRUSHED THROUGH SAEED BUTTOCK. PT POSITIONED AT 90 DEGREE ANGLE FOR ASPIRATION PRECAUTIONS. FEEDING TOLERATED WITH NO S/S OF ASPIRATION. INCONTINENCE CARE PROVIDED AND PT POSITIONED ON RIGHT SIDE WITH HEAD BRIDGED SO THAT RIGHT EAR IS OPEN TO AIR. CALL LIGHT IN REACH. BED IN LOWEST POSITION WITH WHEELS LOCKED AND SRX3. WILL CONTINUE WITH PLAN OF CARE.
[2016-12-01 12:28] VITALS: BP 135/92
--- NOTE | 2016-12-01 14:40 | NUR ---
REPOSITIONED PT TO LEFT SIDE. SAEED BUTTON CHECKED FOR RESIDUA, BUT THERE WAS NONE. FEEDING ADMINISTERED PER ORDER AND MEDICATIONS ADMINISTERED CRUSHED. PT TOLERATED WITH NO S/S OF ASPIRATION. TUB FLUSHED WITH GATORADE PER PHYSICIAN ORDER. MOTHER OUTSIDE AT THIS TIME. HOB POSITIONED AT 45 DEGREES. INCONTINENCE CARE PROVIDED. SRX3 WITH BED IN LOWEST POSITION AND WHEELS LOCKED. CALL LIGHT IN REACH AND DOOR OPEN. WILL CONTINUE WITH PLAN OF CARE.
[2016-12-01 16:28] VITALS: BP 93/58
--- NOTE | 2016-12-01 18:30 | NUR ---
INCONTINENCE CARE PROVIDED FOR EPISODE OF URINE AT THIS TIME. PT REPOSITIONED ON RIGHT SIDE. MOTHER AT BEDSIDE. CALL LIGHT IN REACH AND DOOR OPEN. WILL CONTINUE WITH PLAN OF CARE.
[2016-12-01 19:00] VITALS: BP 118/85
--- NOTE | 2016-12-01 19:00 | NUR ---
BEDSIDE REPORT REPRT RECEIVED AND CARE OF PT ASSUMED. PT LYING IN HIGH ROYAL'S POSITION WITH HOB AT 40 DEGREES. IV IN RIGHT FA PATENT WITH NS INFUSING AT 50 ML / HR. PT SURROUNDED WITH PILLOWS HE IS CONTRACTED ON ALL EXTREMETIES. MOTHER IS AT BEDSIDE. SIDE RAILS UP X2 FOR SAFETY.
--- NOTE | 2016-12-01 22:36 | NUR ---
HS MEDICATIONS AND BOLUS OF 2 ATUL HN GIVEN VIA SAEED BUTTON, AND FLUSHED WITH GATORAID. WILL CONTINUE TO MONITOR FOR NEEDS.
--- NOTE | 2016-12-02 02:00 | NUR ---
PT TURNED PER TURN SCHEDULE AND PADDED WITH PILLOWS FOR COMFORT.
[2016-12-02 06:09] LABS: BASOPHILS 0.3 % (0.0-2.0); EOSINOPHILS 0.3 % (0-7); HEMATOCRIT 33.9 % (42.0-54.0); HEMOGLOBIN 11.3 g/dL (13.5-17.5); LYMPHOCYTES 18.4 % (15-50); MCH 30.5 pg (26.0-34.0); MCHC 33.3 g/dL (31.0-37.0); MCV 91.6 fL (80.0-100.0); MEAN PLATELET VOLUME 9.3 fL (7.4-10.4); MONOCYTES 14.1 % (2-11); NEUTROPHILS 65.9 % (40-80); PLATELET COUNT 390 10x3/uL (130-400); RDW 14.4 % (11.5-14.5); WBC 7.9 10x3/uL (4.8-10.8)
[2016-12-02 06:32] LABS: ALBUMIN 2.8 g/dL (3.4-5.0); ALKALINE PHOSPHATASE 105 U/L (46-116); ALT (SGPT) 28 U/L (10-68); CALCIUM 8.8 mg/dL (8.5-10.1); CARBON DIOXIDE 26.1 mmol/L (21.0-32.0); CHLORIDE - SERUM 97 mmol/L (98-107); CREATININE - SERUM 0.2 mg/dL (0.6-1.3); GLUCOSE 102 mg/dL (74-106); POTASSIUM - SERUM 4.6 mmol/L (3.5-5.1); PROTEIN - SERUM 6.8 g/dL (6.4-8.2); SODIUM 131 mmol/L (136-145); eGFR NON AFRICAN AMERICAN > 90 mL/min (90-120)
[2016-12-02 06:38] LABS: CALC OSMOLALITY 260 mosm/kg (275-300); UREA NITROGEN 8 mg/dL (7-18)
[2016-12-02 09:52] VITALS: BP 109/70
[2016-12-02 15:49] VITALS: BP 119/60
--- NOTE | 2016-12-02 16:45 | NUR ---
CALLED [facility] FOR BRI-BAEZA BUTTON, THEY TOLD ME TO CALL [facility] BECAUSE THE ONLY PLACE IN THE HOSPITAL TO GET ONE WOULD BE GI LAB. CALLED [facility]. SHE CALLED ME BACK AND SAID THAT BRI-BAEZA BUTTONS HAVE TO BE SPECIAL ORDERED SO THERE ARE NOT ANY IN [facility]. ANÍBAL CALLED [facility] AND [facility], BOTH DENIED HAVING ANY. KEYANA, PATIENT'S MOM STATED IF SHE HAS A PERSCRIPTION AND A PRIOR AUTHORIZATION FOR SLOTS ON INSURANCE SHE CAN GET IT FILLED AT [employer]. CALLED [facility], THEY SAID THEY DO NOT CARRY BRI-BAEZA GASTROSTOMY TUBES. KEYANA, PATIENT'S MOM SAID SHE WILL CALL THE DOCTOR'S OFFICE IN THE MORNING TO TRY TO GET PRIOR AUTHORIZATION, TOLD HER TO ASK THE DOCTOR FOR THE PERSCRIPTION FOR THE BRI-BAEZA BUTTON WHEN SHE CALLS HIM IN THE MORNING. PATIENT'S MOM, KEYANA, VERBALIZED UNDERSTANDING. EXPLAINED TO KEYANA GALLAGHER THAT [facility] DOES NOT CARRY XOPENEX AND TO TRY TO GET IT IN THE MORNING WHEN SHE GETS SLOTS ON HER INSURANCE, EXPLAINED THAT IT IS A VERY IMPORTANT MEDICATION FOR HIM TO BE ON.
[2016-12-02] MEDS ORDERED: GUAIFENESI100 MG/5 M NG (16:49)
[2016-12-02] MEDS ORDERED: XOPENEX 0.0.63 MG/3 UPD (16:51)
--- NOTE | 2016-12-02 18:10 | NUR ---
DISCHARGE INSTRUCTIONS COMPLETED WITH KEYANA GALLAGHER, PATIENT'S MOM. SHE DENIES QUESTIONS AND VERBALIZED UNDERSTANDING. D/C IV WITH CATH INTACT.
== END 2016-12-02 20:00 | disposition home or self-care (01) | DRG 178 ==
LOC: D.ER 05:49 → D.MS 09:17
PROVIDERS: Emergency Medicine; Family Medicine; Internal Medicine Pulmonary Disease; ADMIT Family Medicine
DX: J15.212 Pneumonia due to Methicillin resistant Staphylococcus aureus (principal); E87.1 Hypo-osmolality and hyponatremia; J15.1 Pneumonia due to Pseudomonas; G40.909 Epilepsy, unspecified, not intractable, without status epilepticus; G80.9 Cerebral palsy, unspecified; R13.10 Dysphagia, unspecified; R50.9 Fever, unspecified; E87.6 Hypokalemia; M41.9 Scoliosis, unspecified; R62.59 Other lack of expected normal physiological development in childhood

== ENCOUNTER 2018-02-09 10:25 | Emergency (ER) | payer MEDICAID ==
[~2018-02-09] VITALS: Ht 152.4 cm; Wt 22.7 kg
[~2018-02-09 10:25] MED LIST changes: +GUAIFENESI100 MG/5 M NG; +XOPENEX 0.0.63 MG/3 UPD
[2018-02-09 10:35] VITALS: Ht 152.4 cm; Wt 22.7 kg
[2018-02-09 16:52] VITALS: BP 100/66
== END 2018-02-09 15:15 | disposition home or self-care (01) ==
LOC: D.ER 10:25
DX: K94.23 Gastrostomy malfunction (principal); G80.9 Cerebral palsy, unspecified

== ENCOUNTER 2018-12-20 03:37 | Emergency (ER) | payer MEDICAID ==
[~2018-12-20] VITALS: Ht 152.4 cm; Wt 22.7 kg
[2018-12-20 03:43] VITALS: Ht 152.4 cm; Wt 22.7 kg
[2018-12-20 05:40] LABS: BASOPHILS 0.1 % (0-2); EOSINOPHILS 0.2 % (0-7); HEMATOCRIT 33.6 % (42.0-54.0); HEMOGLOBIN 11.4 g/dL (13.5-17.5); IMMATURE GRANULOCYTES 0.2 % (0-5); LYMPHOCYTES 12.3 % (15-50); MCH 30.8 pg (26.0-34.0); MCHC 33.9 g/dL (31.0-37.0); MCV 90.8 fL (80.0-100.0); MEAN PLATELET VOLUME 11.6 fL (7.4-10.4); MONOCYTES 22.1 % (2-11); NEUTROPHILS 65.1 % (40-80); RDW 14.5 % (11.5-14.5)
[2018-12-20 05:41] LABS: PLATELET COUNT 153 10x3/uL (130-400)
[2018-12-20 05:52] LABS: INR 1.14 (0.85-1.17); PROTIME 14.1 SECONDS (11.6-15.0)
[2018-12-20 05:53] LABS: APTT 38.8 SECONDS (22.8-39.4)
[2018-12-20 06:02] LABS: ALBUMIN 3.1 g/dL (3.4-5.0); ALKALINE PHOSPHATASE 105 U/L (46-116); ALT (SGPT) 18 U/L (10-68); BILIRUBIN - TOTAL 0.22 mg/dL (0.2-1.3); CALC OSMOLALITY 271 mosm/kg (275-300); CALCIUM 8.8 mg/dL (8.5-10.1); CARBON DIOXIDE 24.8 mmol/L (21.0-32.0); CHLORIDE - SERUM 99 mmol/L (98-107); CREATININE - SERUM 0.3 mg/dL (0.6-1.3); GLUCOSE 113 mg/dL (74-106); POTASSIUM - SERUM 4.1 mmol/L (3.5-5.1); PROTEIN - SERUM 7.7 g/dL (6.4-8.2); SODIUM 134 mmol/L (136-145); UREA NITROGEN 22 mg/dL (7-18); eGFR NON AFRICAN AMERICAN > 90 mL/min (90-120)
[2018-12-20 06:20] LABS: CKMB 0.3 U/L (0.0-3.6); CREATINE KINASE 30 UL (21-232); TROPONIN-I < 0.017 ng/mL (0.000-0.060)
[2018-12-20 06:27] LABS: APPEARANCE SL CLDY (CLEAR); BILIRUBIN NEGATIVE (NEGATIVE); COLOR DK YELLOW (YELLOW); GLUCOSE NEGATIVE (NEGATIVE); KETONE SMALL mg/dL (NEGATIVE); NITRITE NEGATIVE (NEGATIVE); PROTEIN NEGATIVE (NEGATIVE)
[2018-12-20 06:28] LABS: BACTERIA FEW /hpf (NONE SEEN); EPITHELIAL CELLS 0-5 /hpf (0-5); MUCUS <1+ /lpf (NONE SEEN); RED CELLS - URINE >50 /hpf (0-5); WHITE CELLS - URINE 0-5 /hpf (0-5)
[2018-12-20] MEDS ORDERED: CEPHALEXIN250 MG/5 M PO (06:40)
[2018-12-20] MEDS ORDERED: FURADANTIN25 MG/5 ML PO (06:43)
[2018-12-20 07:17] VITALS: BP 117/64
== END 2018-12-20 07:20 | disposition home or self-care (01) ==
LOC: D.ER 03:37
PROVIDERS: Family Medicine
DX: R09.81 Nasal congestion (principal); N39.0 Urinary tract infection, site not specified

== ENCOUNTER 2019-05-09 17:04 | Inpatient (IN) | payer MEDICAID ==
[~2019-05-09] VITALS: Ht 152.4 cm; Wt 22.7 kg
[~2019-05-09 17:04] MED LIST changes: +CEPHALEXIN250 MG/5 M PO; +FURADANTIN25 MG/5 ML PO
--- NOTE | 2019-05-09 19:02 | NUR ---
HAND OFF REPORT GIVEN TO JAYLENE Mary RN AT THE BEDSIDE. BLANKET PROVIDED FOR PT COMFORT.
[2019-05-09 19:05] LABS: BASOPHILS 0.2 % (0-2); EOSINOPHILS 0.6 % (0-7); HEMATOCRIT 32.3 % (42.0-54.0); HEMOGLOBIN 10.8 g/dL (13.5-17.5); IMMATURE GRANULOCYTES 0.2 % (0-5); LYMPHOCYTES 17.4 % (15-50); MCH 30.8 pg (26.0-34.0); MCHC 33.4 g/dL (31.0-37.0); MEAN PLATELET VOLUME 11.5 fL (7.4-10.4); MONOCYTES 8.4 % (2-11); NEUTROPHILS 73.2 % (40-80); RBC 3.51 10x6/uL (4.20-6.10); RDW 15.4 % (11.5-14.5); WBC 12.3 10x3/uL (4.8-10.8)
[2019-05-09 19:06] LABS: PLATELET COUNT 184 10x3/uL (130-400)
--- NOTE | 2019-05-09 21:45 | NUR ---
RECIEVED REPORT FROM ER, PT ARRIVED ON BED, WITH FAMILY AT BEDSIDE, INITIAL VSS, PT NON-VERBAL AT THIS TIME CONTRACTURES X4 EXTREMETIES. PT HAS BEEN SPITTING UP THICK YELLOW PHLEGM. PT APPEARS TO BE IN NO DISTRESS. MOTHER STEPPED OUT TO GO GET SOME FOOD AT THIS TIME. WILL CTM.
--- NOTE | 2019-05-09 22:19 | NUR ---
PT RESTING IN BED WITH EYES CLOSED. STILL SPITTING UP THICK YELLOW MUCUS. NO S/S OF DISTRESS. FAMILY NOT AT BEDSIDE AT THIS TIME.
[2019-05-09 22:49] VITALS: BP 119/76
[2019-05-10] VITALS: BP 107/60
[2019-05-10 05:43] VITALS: BP 108/64
--- NOTE | 2019-05-10 07:28 | NUR ---
REPORT RECEIVED. WILL CONTINUE WITH POC. PT CURRENTLY LYING ON RIGHT SIDE RESTING. MOM AT BEDSIDE. RR EVEN AND UNLABORED ON RA. R.FOR PIV IS SALINE LOCKED. NO S/S OF DISTRESS NOTED. PT DENIES ANY NEEDS. WILL CTM.
[2019-05-10 09:16] VITALS: BP 102/60
--- NOTE | 2019-05-10 09:55 | NUR ---
BOTH PT AND FAMILY SLEEPING IN ROOM. NO S/S OF DISTRESS NOTED. WILL CTM.
[2019-05-10 13:29] VITALS: BP 92/52
[2019-05-10 13:37] LABS: % SATURATION 10 % (15-55); ALBUMIN 2.6 g/dL (3.4-5.0); ALKALINE PHOSPHATASE 96 U/L (46-116); ALT (SGPT) 18 U/L (10-68); APTT 33.9 SECONDS (22.8-39.4); BILIRUBIN - TOTAL 0.21 mg/dL (0.2-1.3); CALC OSMOLALITY 281 mosm/kg (275-300); CALCIUM 8.4 mg/dL (8.5-10.1); CARBON DIOXIDE 29.8 mmol/L (21.0-32.0); CHLORIDE - SERUM 102 mmol/L (98-107); CREATININE - SERUM 0.2 mg/dL (0.6-1.3); GLUCOSE 100 mg/dL (74-106); INR 1.1 (0.85-1.17); IRON 30 ug/dl (35-150); POTASSIUM - SERUM 3.7 mmol/L (3.5-5.1); PROTEIN - SERUM 6.5 g/dL (6.4-8.2); PROTIME 13.7 SECONDS (11.6-15.0); SODIUM 140 mmol/L (136-145); TOTAL IRON BIND CAPACITY 295 ug/dl (260-445); UNSAT IRON BIND CAPACITY 265 ug/dl (150-375); UREA NITROGEN 21 mg/dL (7-18); eGFR NON AFRICAN AMERICAN > 90 mL/min (90-120)
[2019-05-10 14:23] VITALS: Ht 152.4 cm; Wt 22.7 kg
[2019-05-10 14:49] LABS: PHENOBARBITAL 27.5 ug/mL (15.0-40.0); VALPROIC ACID (DEPAKOTE) 71.7 ug/mL (50.0-100.0)
[2019-05-10 16:45] VITALS: BP 99/58
--- NOTE | 2019-05-10 17:38 | NUR ---
SUCTION PERFORMED. THICK WHITE SECRETIONS RECORDED. IRON CURRENTLY INFUSING. CALLED DIETARY @1600 TO RECEIVE TUBE FEEDING AND STILL HAVE NOT RECEIVED IT @1740. CALMOSEPTINE APPLIED TO RIGHT ABDOMEN AND PADDING PROVIDED. WILL CTM.
--- NOTE | 2019-05-10 19:11 | NUR ---
ALONE IN ROOM SRX3 AND BED LOW AND LOOKED PT IS PHYSICALLY UNABLE TO USE ANY FORM OF CALL LIGHT I WILL CHECK FREQUENTLY. PT IS NON VERBAL AND TOTAL CARE PT HAS A PEG BUT IS UNABLE TO KEEP HEAD AT 30 DEGREES. LCTA AT THIS TIME PT FEEDINGS ARE NOT CONTINUIOUS
[2019-05-10 21:19] VITALS: BP 122/70
[2019-05-11 00:53] VITALS: BP 131/72
--- NOTE | 2019-05-11 05:00 | NUR ---
I have reviewed this patient and I concur with the Shift Assessment completed by the Licensed Practical Nurse today this shift.
[2019-05-11 06:30] LABS: BASOPHILS 0.2 % (0-2); EOSINOPHILS 1.2 % (0-7); HEMATOCRIT 29.2 % (42.0-54.0); HEMOGLOBIN 9.7 g/dL (13.5-17.5); IMMATURE GRANULOCYTES 0.3 % (0-5); LYMPHOCYTES 18.9 % (15-50); MCHC 33.2 g/dL (31.0-37.0); MCV 90.4 fL (80.0-100.0); MONOCYTES 11.7 % (2-11); NEUTROPHILS 67.7 % (40-80); PLATELET COUNT 185 10x3/uL (130-400); RBC 3.23 10x6/uL (4.20-6.10); RDW 14.8 % (11.5-14.5)
[2019-05-11 06:40] VITALS: BP 148/89
[2019-05-11 06:53] LABS: CALC OSMOLALITY 276 mosm/kg (275-300); CALCIUM 8.1 mg/dL (8.5-10.1); CARBON DIOXIDE 28.1 mmol/L (21.0-32.0); CHLORIDE - SERUM 102 mmol/L (98-107); CREATININE - SERUM 0.2 mg/dL (0.6-1.3); GLUCOSE 82 mg/dL (74-106); POTASSIUM - SERUM 4.1 mmol/L (3.5-5.1); SODIUM 138 mmol/L (136-145); UREA NITROGEN 18 mg/dL (7-18); eGFR NON AFRICAN AMERICAN > 90 mL/min (90-120)
--- NOTE | 2019-05-11 07:17 | NUR ---
REPORT RECEIVED. WILL CONTINUE WITH POC. PT CURRENTLY LYING ON RIGHT SIDE. MOM AT BEDSIDE. RR EVEN AND UNLABORED ON RA. NS INFUSING @K[facility] VIA R.FOR PIV. NO S/S OF DISTRESS NOTED. WILL CTM.
[2019-05-11 08:30] VITALS: BP 107/65
--- NOTE | 2019-05-11 13:23 | NUR ---
Nutrition Follow-up: Nurse reports pt tolerating TF. Receiving TwoCal HN TID. No new wt Last BM: 05/07 per chart Labs reviewed Meds reviewed Continue current TF as tolerated. RD following.
[2019-05-11 13:45] VITALS: BP 122/74
--- NOTE | 2019-05-11 14:47 | NUR ---
I have reviewed this patient and I concur with the Shift Assessment completed by the Licensed Practical Nurse today this shift.
[2019-05-11 16:32] VITALS: BP 117/81
--- NOTE | 2019-05-11 17:09 | NUR ---
PM MEDICATIONS ADMININSTERED. TUBE FEEDING COMPLETED. IRON CURRENTLY INFUSING. CLEANED PT AND APPLIED NEW BRIEF. SUCTIONED PT. WILL CTM.
--- NOTE | 2019-05-11 17:33 | MORECARE ---
CASE MANAGEMENT DISCHARGE SUMMARY PATIENT: AMILCAR GALLAGHER R UNIT: [id number] ADM DATE: 05/09/19 AGE: 33 : 84 SEX: M ROOM/BED: D.2128 AUTHOR: RACHNA OMALLEY PHYSICIAN: REFERRING PHYSICIAN: SAGRARIO DALLAS MD DATE OF SERVICE: 05/11/19 Discharge Plan Patient Name: AMILCAR GALLAGHER [facility] [facility] 1985 Planned Disposition: Home with Home Health Anticipated Discharge Date: Discharge Date: Expected LOS: Initial Reviewer: [email or web address] Initial Review Date: 05/11/2019 Generated: 05/11/19 6:33 pm DCPIA - Discharge Planning Initial Assessment Updated by [email or web address]: Ceci Ramos on 05/11/19 5:31 pm * Is the patient Alert and Oriented? No * PCP PABLO * [facility]acy [facility] * Preadmission Environment Home with Family * ADLs Total Dependent * Other Equipment W/C, NEBULIZER, SUCTION, FEEDING SUPPLIES * List name and contact numbers for known caregivers / representatives who currently or will assist patient after discharge: KEYANA GALLAGHER [facility] [phone] * Verbal permission to speak to the caregivers and representatives has been obtained from the patient. N/A * Community resources currently utilized Home Health * Please name any agencies selected above. [facility] * Additional services required to return to the preadmission environment? No * Can the patient safely return to the preadmission environment? Yes * Has this patient been hospitalized within the prior 30 days at any hospital? No Patient Name: AMILCAR GALLAGHER Page 81103 at 1733 All edits/amendments must be made on the electronic document DICTATION DATE: 05/11/191732 GATE OPERATOR: ZACH 05/11/191732 RPT#: [id number] DC DATE: STATUS: ADM IN [facility] [address] [place] [address] END OF REPORT
--- NOTE | 2019-05-11 17:42 | MORECARE ---
CASE MANAGEMENT DISCHARGE SUMMARY PATIENT: AMILCAR GALLAGHER UNIT: [id number] ADM DATE: 05/09/19 AGE: 33 : 84 SEX: M ROOM/BED: D.6914 AUTHOR: SHAHRAM,DOC PHYSICIAN: REFERRING PHYSICIAN: SAGRARIO DALLAS MD DATE OF SERVICE: 05/11/19 Discharge Plan Patient Name: AMILCAR GALLAGHER Facility: [facility]:[place] : 1985 Planned Disposition: Home with Home Health Anticipated Discharge Date: Discharge Date: Expected LOS: Initial Reviewer: [email or web address] Initial Review Date: 05/11/2019 Generated: 05/11/19 6:41 pm Comments DCP- Discharge Planning Updated by [email or web address]: Ceci Ramos on 05/11/19 4:[address] Patient Name: AMILCAR GALLAGHER Admission Status: ER Accout number: [id number] Admission Date: 05-09-2019 : 1985 Admission Diagnosis:PNEUMONITIS DUE TO INHALATION OF FOOD AND VOMIT Attending: SAGRARIO DALLAS Current LOS: 2 Anticipated DC Date: Planned Disposition: Home with Home Health Primary Insurance: MEDICAID [place] Discharge Planning Comments: CM called and spoke with patient's mother Rochelle CM explained CM role and obtained verbal consent. Patient lives at home with his mother and plans to return there upon discharge. Rochelle is patient's caregiver. Patient requires total care. CM discussed availability / needs of home health and medical equipment. Mother states that he has [facility] and plans to resume care with them upon discharge. FARIDEH signed. Mother states that he has a wheelchair, nebulizer, suction and feeding supplies. Mother denies any discharge needs at this time. CM will continue to follow and assist as needed with discharge planning / needs. Strap Setter: Ceci Ramos DCPIA - Discharge Planning Initial Assessment Updated by [email or web address]: Ceci Ramos on 05/11/19 5:31 pm * Is the patient Alert and Oriented? No * PCP PABLO * [facility]acy [facility] * Preadmission Environment Home with Family * ADLs Total Dependent * Other Equipment W/C, NEBULIZER, SUCTION, FEEDING SUPPLIES * List name and contact numbers for known caregivers / representatives who currently or will assist patient after discharge: ROCHELLE GALLAGHER - MOTHER - [phone] * Verbal permission to speak to the caregivers and representatives has been obtained from the patient. N/A * Community resources currently utilized Home Health * Please name any agencies selected above. [facility] * Additional services required to return to the preadmission environment? No * Can the patient safely return to the preadmission environment? Yes * Has this patient been hospitalized within the prior 30 days at any hospital? No Last DP export: 05/11/19 4:33 p Patient Name: AMILCAR GALLAGHER Page [phone] at 1742 All edits/amendments must be made on the electronic document DICTATION DATE: 05/11/191740 PROFESSOR OF BIOLOGICAL SCIENCES: ZACH 05/11/191740 RPT#: [id number] DC DATE: STATUS: ADM IN [facility] [address] [place] [address] END OF REPORT
[2019-05-11 20:00] VITALS: BP 120/63
[2019-05-12] VITALS: BP 117/69
[2019-05-12 04:00] VITALS: BP 100/57
[2019-05-12 05:52] LABS: BASOPHILS 0.4 % (0-2); EOSINOPHILS 2.1 % (0-7); HEMATOCRIT 31.8 % (42.0-54.0); HEMOGLOBIN 10.5 g/dL (13.5-17.5); IMMATURE GRANULOCYTES 0.2 % (0-5); LYMPHOCYTES 28.5 % (15-50); MCH 30.3 pg (26.0-34.0); MCV 91.6 fL (80.0-100.0); MEAN PLATELET VOLUME 12.3 fL (7.4-10.4); MONOCYTES 11.5 % (2-11); NEUTROPHILS 57.3 % (40-80); PLATELET COUNT 183 10x3/uL (130-400); RBC 3.47 10x6/uL (4.20-6.10); RDW 15.1 % (11.5-14.5); WBC 5.1 10x3/uL (4.8-10.8)
[2019-05-12 06:08] LABS: CARBON DIOXIDE 25.2 mmol/L (21.0-32.0); CHLORIDE - SERUM 105 mmol/L (98-107); GLUCOSE 87 mg/dL (74-106); POTASSIUM - SERUM 4.3 mmol/L (3.5-5.1); SODIUM 137 mmol/L (136-145)
[2019-05-12 06:21] LABS: CALC OSMOLALITY 270 mosm/kg (275-300); CREATININE - SERUM 0.3 mg/dL (0.6-1.3); UREA NITROGEN 8 mg/dL (7-18); eGFR NON AFRICAN AMERICAN > 90 mL/min (90-120)
--- NOTE | 2019-05-12 07:38 | NUR ---
PT RESTING PEACEFULLY WHEN I ENTERED, MOTHER AT BEDSIDE. BREATHS EVEN, REGULAR, AND UNLABORED. NO SIGNS/SYMPTOMS OF DISTRESS NOTED AT THIS TIME. CL INREACH, SRX2.
[2019-05-12 08:30] VITALS: BP 103/53
--- NOTE | 2019-05-12 10:40 | NUR ---
I have reviewed this patient and I concur with the Shift Assessment completed by the Licensed Practical Nurse today this shift.
[2019-05-12 12:45] VITALS: BP 102/63
[2019-05-12 16:45] VITALS: BP 124/67
--- NOTE | 2019-05-12 18:19 | NUR ---
PT HAS BEEN AWAKE, NO VERBAL RESPONSE BUTTHIS IS WNL FOR PT. MOTHER HAS FED PT THROUGHOUT THE DAY THROUGH SAEED TUBE. NO COMPLAINTS OR CONCERNS VOICED, ALL QUESTIONS ANSWERED. CL OUSMANE REACH, SRX2.
--- NOTE | 2019-05-12 19:30 | NUR ---
RECEIVED REPORT, WILL ASSUME CARE OF PT, SLEEPING ON R.SIDE, BED IS LOW, SRX2, CALL LIGHT IN REACH, WILL CONTINUE PLAN OF CARE
[2019-05-12 22:40] VITALS: BP 98/53
--- NOTE | 2019-05-12 23:13 | NUR ---
PT WAS INCONT. CLEANED UP, ALSO REPOSTIONED PT
--- NOTE | 2019-05-13 01:08 | NUR ---
I have reviewed this patient and I concur with the Shift Assessment completed by the Licensed Practical Nurse today this shift.
[2019-05-13 05:20] VITALS: BP 90/57
[2019-05-13 05:41] LABS: BASOPHILS 0.4 % (0-2); EOSINOPHILS 2.2 % (0-7); HEMATOCRIT 34.2 % (42.0-54.0); HEMOGLOBIN 11.4 g/dL (13.5-17.5); LYMPHOCYTES 32.4 % (15-50); MCH 30.6 pg (26.0-34.0); MCHC 33.3 g/dL (31.0-37.0); MCV 91.7 fL (80.0-100.0); MEAN PLATELET VOLUME 11.6 fL (7.4-10.4); MONOCYTES 10.4 % (2-11); NEUTROPHILS 54.6 % (40-80); PLATELET COUNT 170 10x3/uL (130-400); RBC 3.73 10x6/uL (4.20-6.10); RDW 14.9 % (11.5-14.5); WBC 4.6 10x3/uL (4.8-10.8)
[2019-05-13 06:04] LABS: CALC OSMOLALITY 268 mosm/kg (275-300); CARBON DIOXIDE 23.4 mmol/L (21.0-32.0); CHLORIDE - SERUM 103 mmol/L (98-107); CREATININE - SERUM 0.3 mg/dL (0.6-1.3); GLUCOSE 82 mg/dL (74-106); POTASSIUM - SERUM 4.1 mmol/L (3.5-5.1); SODIUM 136 mmol/L (136-145); UREA NITROGEN 6 mg/dL (7-18); eGFR NON AFRICAN AMERICAN > 90 mL/min (90-120)
[2019-05-13 08:33] VITALS: BP 101/55
--- NOTE | 2019-05-13 09:16 | NUR ---
I have reviewed this patient and I concur with the Shift Assessment completed by the Licensed Practical Nurse today this shift.
--- NOTE | 2019-05-13 11:17 | NUR ---
SPOKE TO DR. TURPIN ABOUT PT, HE STATED THAT IF THE FAMILY AND DR. DALLAS ARE COMFORTBALE, HE IS OK WITH THE PT GOING HOME. WILL RELAY TO FAMILY.
[2019-05-13 12:30] VITALS: BP 106/64
[2019-05-13] MEDS ORDERED: AMOX TR-K CLV 475 ML PO (14:36)
--- NOTE | 2019-05-13 16:39 | NUR ---
PT ESCORTED OUT VIA WHEELCHAIR, IN MOTHERS LAP, TO POV. MOTHER ASSITED GETTIN GPT INTO CAR WHICH WAS SET UP FOR HIM.
--- NOTE | 2019-05-14 08:41 | MORECARE ---
CASE MANAGEMENT DISCHARGE SUMMARY PATIENT: AMILCAR GALLAGHER UNIT: [id number] ADM DATE: 05/09/19 AGE: 33 : 83 SEX: M ROOM/BED: D.7133 AUTHOR: SHAHRAM,DOC PHYSICIAN: REFERRING PHYSICIAN: SAGRARIO DALLAS MD DATE OF SERVICE: 05/14/19 Discharge Plan Patient Name: AMILCAR GALLAGHER Facility[facility]:[place] : 1985 Planned Disposition: Home with Home Health Anticipated Discharge Date: 05/13/19 Discharge Date: 05/13/2019 Expected LOS: 4 Initial Reviewer: [email or web address] Initial Review Date: 05/11/2019 Generated: 05/14/19 9:40 am Comments DCP- Discharge Planning Updated by [email or web address]: Ceci Ramos on 05/11/19 4:[address] Patient Name: AMILCAR GALLAGHER Admission Status: ER Accout number: [id number] Admission Date: 05-09-2019 : 1985 Admission Diagnosis:PNEUMONITIS DUE TO INHALATION OF FOOD AND VOMIT Attending: SAGRARIO DALLAS Current LOS: 2 Anticipated DC Date: Planned Disposition: Home with Home Health Primary Insurance: MEDICAID [place] Discharge Planning Comments: CM called and spoke with patient's mother Rochelle CM explained CM role and obtained verbal consent. Patient lives at home with his mother and plans to return there upon discharge. Rochelle is patient's caregiver. Patient requires total care. CM discussed availability / needs of home health and medical equipment. Mother states that he has [facility] and plans to resume care with them upon discharge. FARIDEH signed. Mother states that he has a wheelchair, nebulizer, suction and feeding supplies. Mother denies any discharge needs at this time. CM will continue to follow and assist as needed with discharge planning / needs. Chain Testing Machine Operator: Ceci Ramos DCPIA - Discharge Planning Initial Assessment Updated by [email or web address]: Ceci Ramos on 05/11/19 5:31 pm * Is the patient Alert and Oriented? No * PCP PABLO * [facility] * Preadmission Environment Home with Family * ADLs Total Dependent * Other Equipment W/C, NEBULIZER, SUCTION, FEEDING SUPPLIES * List name and contact numbers for known caregivers / representatives who currently or will assist patient after discharge: ROCHELLE GALLAGHER - MOTHER - [phone] * Verbal permission to speak to the caregivers and representatives has been obtained from the patient. N/A * Community resources currently utilized Home Health * Please name any agencies selected above. [facility] * Additional services required to return to the preadmission environment? No * Can the patient safely return to the preadmission environment? Yes * Has this patient been hospitalized within the prior 30 days at any hospital? No External Providers External Provider: [facility] Next Contact Date: 05/14/2019 Service Request Date: Service Type: Resolution: Reviewer: Comments: Last DP export: 05/11/19 4:42 p Patient Name: AMILCAR GALLAGHER Page 68710 at 0841 All edits/amendments must be made on the electronic document DICTATION DATE: 05/14/19839 FOOD INSPECTOR: ZACH 05/14/19839 RPT#: [id number] DC DATE:05/13/19 STATUS: DIS IN [facility] [address] [place] [address] END OF REPORT
--- NOTE | 2019-05-14 08:48 | MORECARE ---
CASE MANAGEMENT DISCHARGE SUMMARY PATIENT: AMILCAR GALLAGHER UNIT: [id number] ADM DATE: 05/09/19 AGE: 33 : 83 SEX: M ROOM/BED: D.0674 AUTHOR: SHAHRAM,DOC PHYSICIAN: REFERRING PHYSICIAN: SAGRARIO DALLAS MD DATE OF SERVICE: 05/14/19 Discharge Plan Patient Name: AMILCAR GALLAGHER Facility: [facility]:[place] : 1985 Planned Disposition: Home with Home Health Anticipated Discharge Date: 05/13/19 Discharge Date: 05/13/2019 Expected LOS: 4 Initial Reviewer: [email or web address] Initial Review Date: 05/11/2019 Generated: 05/14/19 9:48 am Comments DCP- Discharge Planning Updated by [email or web address]: Casper Booth on 05/14/19 7:[address] Patient Name: AMILCAR GALLAGHER Encounter No: [id number] : 1985 Primary Insurance: MEDICAID [place] Anticipated DC Date: 05-13-2019 Planned Disposition: Home DCP follow-up note: FABIOLA REVIEWED CHART, PT DISCHARGED OVER THE WEEKEND. CM NOTED PREVIOUSLY DURING STAY THAT PT IS ACTIVE WITH [facility] AND PT'S MOTHER WANTED THE SERVICES RESUMED. FABIOLA FAXED DISCHARGE INFORMATION TO [facility], . FABIOLA CALLED [facility], , SPOKE TO WILD WHO ADVISED PT DOES NOT HAVE HOME HEALTH BUT MAY HAVE [facility] FOR PERSONAL CARE SERVICES. [facility] WILL SHRED REFERRAL AND DISCHARGE INFORMATION WHEN IT ARRIVES. DONNA SAUNDERS DCP- Discharge Planning Updated by [email or web address]: Ceci Ramos on 05/11/19 4:[address] Patient Name: AMILCAR GALLAGHER Admission Status: ER Accout number: [id number] Admission Date: 05-09-2019 : 1985 Admission Diagnosis:PNEUMONITIS DUE TO INHALATION OF FOOD AND VOMIT Attending: SAGRARIO DALLAS Current LOS: 2 Anticipated DC Date: Planned Disposition: Home with Home Health Primary Insurance: MEDICAID [place] Discharge Planning Comments: CM called and spoke with patient's mother Rochelle CM explained CM role and obtained verbal consent. Patient lives at home with his mother and plans to return there upon discharge. Rochelle is patient's caregiver. Patient requires total care. CM discussed availability / needs of home health and medical equipment. Mother states that he has [facility] and plans to resume care with them upon discharge. FARIDEH signed. Mother states that he has a wheelchair, nebulizer, suction and feeding supplies. Mother denies any discharge needs at this time. CM will continue to follow and assist as needed with discharge planning / needs. Clinical Care Coordinator: Ceci RANGEL - Discharge Planning Initial Assessment Updated by [email or web address]: Ceci Ramos on 05/11/19 5:31 pm * Is the patient Alert and Oriented? No * PCP PABLO * [facility]acy [facility] * Preadmission Environment Home with Family * ADLs Total Dependent * Other Equipment W/C, NEBULIZER, SUCTION, FEEDING SUPPLIES * List name and contact numbers for known caregivers / representatives who currently or will assist patient after discharge: ROCHELLE GALLAGHER - MOTHER - [phone] * Verbal permission to speak to the caregivers and representatives has been obtained from the patient. N/A * Community resources currently utilized Home Health * Please name any agencies selected above. [facility] * Additional services required to return to the preadmission environment? No * Can the patient safely return to the preadmission environment? Yes * Has this patient been hospitalized within the prior 30 days at any hospital? No Last DP export: 05/14/19 7:41 a Patient Name: AMILCAR GALLAGHER Page 62354 at 0848 All edits/amendments must be made on the electronic document DICTATION DATE: 05/14/1949 MACHINE DEICER ELEMENT WINDER: ZACH 05/14/1949 RPT#: [id number] DC DATE:05/13/19 STATUS: DIS IN [facility] [address] [place] [address] END OF REPORT
--- NOTE | 2019-05-14 09:32 | MORECARE ---
CASE MANAGEMENT DISCHARGE SUMMARY PATIENT: AMILCAR GALLAGHER UNIT: [id number] ADM DATE: 05/09/19 AGE: 33 : 83 SEX: M ROOM/BED: D.8057 AUTHOR: SHAHRAM,DOC PHYSICIAN: REFERRING PHYSICIAN: SAGRARIO DALLAS MD DATE OF SERVICE: 05/14/19 Discharge Plan Patient Name: AMILCAR GALLAGHER Facility: [facility]:[place] : 1985 Planned Disposition: Home with Home Health Anticipated Discharge Date: 05/13/19 Discharge Date: 05/13/2019 Expected LOS: 4 Initial Reviewer: [email or web address] Initial Review Date: 05/11/2019 Generated: 05/14/19 10:32 am Comments DCP- Discharge Planning Updated by [email or web address]: Karon Arriola on 05/14/19 8:[address] WEEKEND LEASE ATTENDANT FOLLOW UP FROM PM DISCHARGE TO HOME ON 05/13. CM TELEPHONED [facility] AND SPOKE WITH ABELINO. THIS PATIENT IS NOT ON SERVICE WITH [facility]. CM SPOKE Nii/ ROMAN, THE INITIAL CM, SHE STATES THE MOTHER DID SAY [facility]. CM TELEPHONED DR SHAH'S OFFICE AND SPOKE WITH [facility]. PER THE PCP OFFICE NOTES THE PATIENT HAS [facility]. TELEPHONED [facility]. PATIENT IS NOT ON SERVICE. TELEPHONED [facility]. SPOKE WITH [facility]. PATIENT IS NOT ON SERVICE. TELEPHONED [facility]. PATIENT IS NOT ON SERVICE. TELEPHONED [facility]. PATIENT IS NOT ON SERVICE. TELEPHONED THE PATIENT'S CAREGIVER, HIS MOTHER. PHONE CALL WOULD NOT GO THROUGH. CM FAXED DR SHAH'S OFFICE CLINICAL TO F/U ON ADMISSION AND DISCHARGE. CM NOTED THAT THE PATIENT DOES NOT HAVE A ASSISTED PROVIDER FOR THEIR F/U. CM SPOKE W/ MADI HICKS. HE WAS ALREADY AWARE THAT [facility] DID NOT HAVE PATIENT ON SERVICE. CM ADVISED HIM OF ABOVE. DCP- Discharge Planning Updated by [email or web address]: Amber Chacon on 05/14/19 7:[address] Patient Name: AMILCAR GALLAGHER Encounter No: [id number] : 1985 Primary Insurance: MEDICAID [place] Anticipated DC Date: 05-13-2019 Planned Disposition: Home DCP follow-up note: CM REVIEWED CHART, PT DISCHARGED OVER THE WEEKEND. CM NOTED PREVIOUSLY DURING STAY THAT PT IS ACTIVE WITH [facility] AND PT'S MOTHER WANTED THE SERVICES RESUMED. CM FAXED DISCHARGE INFORMATION TO [facility], . CM CALLED [facility], , SPOKE TO WILD WHO ADVISED PT DOES NOT HAVE HOME HEALTH BUT MAY HAVE [facility] FOR PERSONAL CARE SERVICES. [facility] WILL SHRED REFERRAL AND DISCHARGE INFORMATION WHEN IT ARRIVES. AMBER CHACON, CASE MANAGEMENT DCP- Discharge Planning Updated by [id number]: Ceci Ramos on 05/11/19 4:[address] Patient Name: AMILCAR GALLAGHER Admission Status: ER Accout number: [id number] Admission Date: 05-09-2019 : 1985 Admission Diagnosis:PNEUMONITIS DUE TO INHALATION OF FOOD AND VOMIT Attending: SAGRARIO DALLAS Current LOS: 2 Anticipated DC Date: Planned Disposition: Home with Home Health Primary Insurance: MEDICAID [place] Discharge Planning Comments: CM called and spoke with patient's mother Keyana FABIOLA explained CM role and obtained verbal consent. Patient lives at home with his mother and plans to return there upon discharge. Keyana is patient's caregiver. Patient requires total care. CM discussed availability / needs of home health and medical equipment. Mother states that he has [facility] and plans to resume care with them upon discharge. FARIDEH signed. Mother states that he has a wheelchair, nebulizer, suction and feeding supplies. Mother denies any discharge needs at this time. CM will continue to follow and assist as needed with discharge planning / needs. Schedule Maker: Ceci Ramos DCPIA - Discharge Planning Initial Assessment Updated by [email or web address]: Ceci Ramos on 05/11/19 5:31 pm * Is the patient Alert and Oriented? No * PCP PABLO * [facility] * Preadmission Environment Home with Family * ADLs Total Dependent * Other Equipment W/C, NEBULIZER, SUCTION, FEEDING SUPPLIES * List name and contact numbers for known caregivers / representatives who currently or will assist patient after discharge: KEYANA GALLAGHER - MOTHER - [phone] * Verbal permission to speak to the caregivers and representatives has been obtained from the patient. N/A * Community resources currently utilized Home Health * Please name any agencies selected above. [facility] * Additional services required to return to the preadmission environment? No * Can the patient safely return to the preadmission environment? Yes * Has this patient been hospitalized within the prior 30 days at any hospital? No Last DP export: 05/14/19 7:48 a Patient Name: AMILCAR GALLAGHER Page [id number] at 0932 All edits/amendments must be made on the electronic document DICTATION DATE: 05/14/19930 PROJECTION CAMERA OPERATOR: ZACH 05/14/19930 RPT#: [id number] DC DATE:05/13/19 STATUS: DIS IN [facility] [address] [place] [address] END OF REPORT
== END 2019-05-13 16:40 | disposition home health service (06) | DRG 871 ==
LOC: D.ER 17:04 → D.M2 19:38
PROVIDERS: Emergency Medicine; ADMIT Internal Medicine Nephrology; ATTEND Internal Medicine Nephrology
DX: A41.9 Sepsis, unspecified organism (principal); J69.0 Pneumonitis due to inhalation of food and vomit; E43 Unspecified severe protein-calorie malnutrition; G82.50 Quadriplegia, unspecified; Z68.1 Body mass index [BMI] 19.9 or less, adult; D64.9 Anemia, unspecified; G40.909 Epilepsy, unspecified, not intractable, without status epilepticus; G80.9 Cerebral palsy, unspecified; E61.1 Iron deficiency